=== PATIENT | female | born 1980 | race Caucasian/White ===

== ENCOUNTER 2023-08-15 10:44 | Emergency (ER) | payer MEDICAID, SELFPAY ==
[2023-08-15 10:56] VITALS: BP 132/99; PULSE 84; RESP 20; TEMP 36.9; O2SAT 94; BMI 42.9
--- NOTE | 2023-08-15 10:59 | PC.NURSE ---
SOB with exertion. Denies SOB at rest.
--- NOTE | 2023-08-15 13:21 | ED_ITS ---
HPI - General Adult General Chief complaint: Upper Respiratory Infection Stated complaint: SHORTNESS OF BREATH Time Seen by Provider: 08/15/23 11:59 Source: patient Mode of arrival: walk-in Limitations: no limitations History of Present Illness HPI narrative: Patient's lungs are clear, no wheezing, no rhonchi, no congestion. Patient was sent here from urgent care because she was COVID +.Patient was told that we w ould be able to help her with a work note, and breathing issues if needed. Patient says she does not feel that bad. Patient started with symptoms yesterday of cold, cough, congestion. Patient does not feel she needs a breathing treatment. Patient has a inhaler sitting next to her at bedside that was just refilled. Education on treating her symptoms [id number] were discussed at bedside and on discharge paperwork. Patient was given a work note per CDC recommendations. Patient has no nausea, vomiting, diarrhea, and acute complaints. Patient works at [employer]. Patient's house at bedside. Patient says that she was sick a week ago, she is placed on antibiotics at that time. Patient has finished antibiotics, patient says that she felt more sick last week and she does today. Patient is due to be a work today. . All systems are negative except as noted/marked. All systems reviewed and otherwise negative. . Nurses note and vital signs reviewed and patient is not hypoxic. General: The patient appears well and in no apparent distress. Patient is resting comfortably on cart. Patient is not toxic, lethargic, or listless Skin: Warm, dry, no pallor noted. There is no rash noted. No petechiae, purpura. Head: Normocephalic, atraumatic; No tenderness to palpation to bilateral frontal or maxillary sinus Eye: Normal conjunctiva, no drainage, EOMI. PERRL Ears, Nose, Mouth, and Throat: oral mucosa is moist. Nares patent. Mouth without vesicles. Cardiovascular: Regular Rate and Rhythm, no murmur, gallop, rub Respiratory: Patient is in no distress, no accessory muscle use, lungs are clear to auscultation, no wheezing, rales or rhonchi Back: non-tender, no CVA tenderness bilaterally to percussion. No CT LS midline pain GI: soft, obese, no tenderness Musculoskeletal: Patient has full range of motion of all of the extremities, no motor, sensory, or focal neurological deficits Neurological: A&O x3, normal speech Psychiatric: Cooperative Related Data Previous Rx's Medication Instructions Recorded prednisone 50 mg tablet 50 mg PO DAILY 5 days #5 tabs 08/15/23 Allergies Allergy/AdvReac Type Severity Reaction Status Date / Time No Known Drug Allergies Allergy Verified 08/15/23 10:56 Exam Constitutional Vital Signs, click to edit/add: Last Vital Signs Temp 98.5 F 08/15/23 10:56 Pulse 84 08/15/23 10:56 Resp 20 08/15/23 10:56 BP 132/99 H 08/15/23 10:56 Pulse Ox 94 L 08/15/23 10:56 O2 Del Method Room Air 08/15/23 10:56 Course Vital Signs Vital signs: Vital Signs Temperature 98.5 F 08/15/23 10:56 Pulse Rate 84 08/15/23 10:56 Respiratory Rate 20 08/15/23 10:56 Blood Pressure 132/99 H 08/15/23 10:56 Pulse Oximetry 94 L 08/15/23 10:56 Oxygen Delivery Method Room Air 08/15/23 10:56 Temperature 98.5 F 08/15/23 10:56 Pulse Rate 84 08/15/23 10:56 Respiratory Rate 20 08/15/23 10:56 Blood Pressure 132/99 H 08/15/23 10:56 Pulse Oximetry 94 L 08/15/23 10:56 Oxygen Delivery Method Room Air 08/15/23 10:56 Medical Decision Making MDM Narrative Medical decision making narrative: EKG was reviewed, no acute changes. Patient was given a prescription for prednisone to have a home just in case she needs it. Patient and I agreed that she does not need prednisone prescription at this time. Patient may not needed. Patient says that her asthma does not feel bad, she does have a full inhaler sitting next to her. Patient was educated and treating her symptoms at home. Patient was given a work note per CDC recommendations. Patient has no other questions at discharge. Patient looks well. Patient works at [employer]. No indication for imaging or additional testing, patient agrees. ECG Data Attestation: I personally reviewed and interpreted this ECG as follows: (EKG interpretation. Normal sinus rhythm 85 beats a minute. Normal axis deviation. No acute ST elevation, no acute ectopy. QTC of 408) Discharge Plan Discharge Chief Complaint: Upper Respiratory Infection Clinical Impression: COVID, Upper respiratory infection, History of asthma Patient Disposition: Home, Self-Care Time of Disposition Decision: 13:16 Condition: Fair Prescriptions / Home Meds: New prednisone 50 mg tablet 50 mg PO DAILY 5 Days Qty: 5 0RF Instructions: Asthma (ED), Upper Respiratory Infection (ED), COVID-19 (Coronavirus Disease 2019) (ED), Social Distancing Guidelines for COVID-19 (ED) Additional Instructions: Start using DayQuil, NyQuil, Flonase daily for next 5-7 days Add Mucinex DM if needed. Take daily vitamin C, vitamin D3, and zinc Increase fluids. Alternate Tylenol and Motrin every 4 hours as needed for body aches, muscle pain, joint pain or chest wall pain Follow-up with her PCP is no significant improvement in the next 3-4 days Only use steroids if needed for significant shortness of breath or wheezing. Stand Alone Forms: Work/School Release, Portal Instructions Referrals: Physician,Non-Staff, MD [Primary Care Provider] - 1 week
--- NOTE | 2023-08-15 13:21 | ECG_ITS ---
[facility] Test Date: 2023-08-15 Pat Name: SIOMARA MEADOWS Department: Room: - Gender: Female Record Label Intern: : 1980 Requested By: 0919 Order Number: [id number] Reading MD: AWA MENDOZA Measurements Intervals Una Rate: 85 P: 64 NC: 156 QRS: 20 QRSD: 88 T: 30 QT: 366 QTc: 408 Interpretive Statements 1100 Sinus rhythm 6220 Possible left atrial enlargement 8102 Low QRS voltage in chest leads 9130 borderline ECG No previous ECG available for comparison Electronically Signed On 08-16-2023 7:03:47 EST by AWA MENDOZA
== END 2023-08-15 13:26 | disposition home or self-care (01) ==
PROVIDERS: Emergency Provider Emergency Medicine
DX: U07.1 COVID-19 (principal); J06.9 Acute upper respiratory infection, unspecified; J45.909 Unspecified asthma, uncomplicated
CPT/HCPCS: 93005; 99283

== ENCOUNTER 2023-08-17 16:37 | Emergency (ER) | payer MEDICAID, SELFPAY ==
[2023-08-17 16:56] VITALS: PULSE 91; RESP 20; TEMP 36.6; O2SAT 96; BMI 48.1
--- OUTSIDE RECORDS SUMMARY | 2023-08-17 17:54 | XMS_ITS | CCD ---
Author Name Unknown Address [address] [facility] [address] [place] [id number] Organization [facility] Care Team Providers Care Asset Protection Detective Name Role Phone DR MACHELLE SIDDIQUI Primary Care Unavailable NAILA PETERS Consulting Unavailable NAILA PETERS Attending Unavailable NAILA PETERS Admitting Unavailable Jacquelin Terrell Unavailable Karo Cazares Unavailable Allergies Allergy Classification Reported Allergen(s) Allergy Type Date of Onset Reaction(s) Facility (1 source) Ethinyl Estradiol / norgestimate Drug Allergy [facility] Repository (2 sources) Ethinyl Estradiol / norgestimate Drug Allergy shortness of breath [facility] Other Medications Current Medications Medication Drug Class(es) Dates Sig (Normalized) Sig (Original) [id number] 60 actuat albuterol 0.09 mg/actuat metered dose inhaler (2 sources) beta2-Adrenergic Agonist Start: 3 take 1-2 puff(s) by inhalation every four to six hours as needed Albuterol Sulfate HFA 108 (90 Base) MCG/ACT 1-2 puffs as needed Inhalation every 4-6 hours for 14 days Jul, Active azithromycin 250 mg oral tablet (2 sources) Macrolide Antimicrobial Start: 3 Azithromycin 250 MG as directed Orally Take 2 tablets day 1 take 1 tablet day 2-5. for 5 days Jul, Active 24 hr buPROPion hydrochloride 150 mg extended release oral tablet (2 sources) Aminoketone take 1 tablet by mouth every twenty-four hours Wellbutrin XL 150 MG 1 tablet in the morning Orally Once a day Active FLUoxetine 20 mg oral capsule (2 sources) Serotonin Reuptake Inhibitor FLUoxetine HCl 20 MG Oral for 90 Days Active methylPREDNISolone 4 mg oral tablet (4 sources) Corticosteroid Start: 3 methylPREDNISolone 4 MG as directed Orally daily dose take half with breakfast half with dinner for 6 29 Dec, 2023 Active oxybutynin chloride 5 mg oral tablet (2 sources) Cholinergic Muscarinic Antagonist take 1 tablet by mouth every twelve hours oxyBUTYnin Chloride 5 MG 1 tablet Orally Twice a day Active Completed/Discontinued Medications Medication Drug Class(es) Dates Sig (Normalized) Sig (Original) acetaminophen 325 mg / HYDROcodone bitartrate 5 mg oral tablet (2 sources) Opioid Agonist HYDROcodone-Acet ami nophen 5-325 MG Oral for 30 Days Not-Taking/PRN amoxicillin 875 mg / clavulanate 125 mg oral tablet (2 sources) Penicillin-class Antibacterial take 1 tablet by mouth twice daily as needed Amoxicillin-Pot Clavulanate 875-125 MG TAKE 1 TABLET BY MOUTH TWICE DAILY Oral for 10 Days Not-Taking/PRN dextromethorphan hydrobromide 1.5 mg/ml / pyrilamine maleate 1.5 mg/ml oral solution (2 sources) Uncompetitive S-febhyb-L-asparta te Receptor Antagonist, Sigma-1 Agonist Start: 12-29-2022 take 10 mL by mouth every eight hours as needed [place] DM 7.5-7.5 MG/5ML 10 mL Orally every 8 hours for 5 days December, Not-Taking/PRN nitrofurantoin, macrocrystals 25 mg / nitrofurantoin, monohydrate 75 mg oral capsule (2 sources) Nitrofuran Antibacterial Nitrofurantoin Monohyd Macro 100 MG Oral for 5 Days Not-Taking/PRN Problems Active Problems Problem Classification Problem Date Documented Da te Episodic/Chronic Chronic obstructive pulmonary disease and bronchiectasis (1 source) Bronchitis, not specified as acute or chronic Episodic Other upper respiratory infections (4 sources) Acute pharyngitis, unspecified; Translations: [ACUTE PHARYNGITIS UNSPECIFIED] Onset: 09-28-2022 Episodic Otitis media and related conditions (1 source) Otitis media, unspecified, bilateral; Translations: [OTITIS MEDIA UNSPECIFIED BILATERAL] Onset: 09-29-2022 Episodic Past or Other Problems Problem Classification Problem Date Documented Da te Episodic/Chronic Unclassified (1 source) Contact with and (suspected) exposure to covid-19 Z20.822 Unclassified (1 source) Acute cough R05.1 Results Test Name Value Interpretation Reference Range Facil ity COVID + FLU Quick Testingon 08-15-2023 SARS-CoV-2 (COVID-19) RNA OLESYA+probe Ql (Unsp spec) Positive [facility] Other COVID + FLU Quick Testing Negative [facility] Other COVID/FLU/RSV RT-PCRon 08-11 SARS-CoV-2 (COVID-19) RNA OLESYA+probe Ql (Unsp spec) Negative [facility] Other COVID/FLU/RSV RT-PCR Negative [facility] Other GROUP A STREP CULTUREon 09-14 S. pyogenes Ag Ql (Unsp spec) Isolate 1 Streptococcus pyogenes Light growth of ORGANISM 1 Streptococcus pyogenes ANTIBIOTIC M.I.C RX STATUS Benzylpenicillin <=0.06 S F Ampicillin <=0.25 S F Cefotaxime <=0.12 S F Ceftriaxone <=0.12 S F Levofloxacin 0.5 S F Inducible Clindamycin Resistance Neg NEG F Erythromycin <=0.12 S F Clindamycin <=0.25 S F Linezolid <=2 S F Vancomycin <=0.12 S F Tetracycline <=0.25 S F Normal [facility] Comment on above: Performed By: #### BEATRICETCX, SSCRN #### [facility] [address] [place] [address] Dr. Antonietta Farmer STREPT SCREENon 09-28-2022 STREP SCREEN A Negative Normal NEGATIVE [facility] Comment on above: Performed By: #### BEATRICETCX, SSCRN #### [facility] [address] [address] [address] Antonietta Farmer Vital Signs Date Time Vital Sign Value Performing Clinician Facility 08-15-2023 10:10-0500 Body height 163.83 cm Karo Cazares Other [facility] Other 08-15-2023 10:10-0500 Body mass index (BMI) [Ratio] 46.3 kg/m2 Karo Cazares Other [facility] Other 08-15-2023 10:10-0500 Body temperature 99.1 [degF] Karo Cazares Other [facility] Other 08-15-2023 10:10-0500 Body weight 124.29 kg Karo Cazares Other [facility] Other 08-15-2023 10:10-0500 Respiratory rate 18 /min Karo Cazares Other [facility] Other 08-15-2023 10:10-0500 SaO2% (BldA) [Mass fraction] 88 % Karo Cazares Other [facility] Other 08-11-2023 09:55-0500 Body height 163.83 cm Jacquelin Terrell Other [facility] Other 08-11-2023 09:55-0500 Body mass index (BMI) [Ratio] 45.46 kg/m2 Jacquelin Terrell Other [facility] Other 08-11-2023 09:55-0500 Body temperature 97.3 [degF] Jacquelin Terrell Other [facility] Other 08-11-2023 09:55-0500 Body weight 122.02 kg Jacquelin Terrell Other [facility] Other 08-11-2023 09:55-0500 Respiratory rate 18 /min Jacquelin Terrell Other [facility] Other 08-11-2023 09:55-0500 SaO2% (BldA) [Mass fraction] 97 % Jacquelin Terrell Other [facility] Other Encounters Encounter Date Encounter Type Care Provider Facility Start: 08-15-2023 End: 08-15-2023 ambulatory Karo Cazares Other [facility] Other Start: 08-15-2023 Patient encounter procedure Karo Cazares [facility] Start: 08-11-2023 End: 08-11-2023 ambulatory Jacquelin Terrell Other [facility] Other Start: 08-11-2023 Office outpatient vi sit 15 minutes Jacquelin Terrell [facility] Start: 09-28-2022 End: 09-29-[address] DOCTOR SIDDIQUI Facility:[facility] Payers Date Payer Category Payer Unknown [id number] 1960 Self-pay Medicaid [id number] 2. [id number] Social History Date Type Detail Facility Unknown if ever smoked [facility] Other Sex Assigned At Sex Assigned At Bir th [facility] Other Evaluation note 08-15-2023 Note Date & Type Note Facility 08-15-2023 Evaluation note Encounter Date Diagnosis Assessment Notes Aug, Acute cough (ICD-10 - R05.1) [facility] Other Evaluation note 08-11-2023 Note Date & Type Note Facility 08-11-2023 Evaluation note Encounter Date Diagnosis Assessment Notes Jul, Contact with and (suspected) exposure to covid-19 (ICD-10 - Z20.822) Jul, Bronchitis (ICD-10 - J40) Advised that COVID, RSV and Flu negative. Patient to take meds as directed with food. Discussed SE of steroid, avoid additional NSAIDs while taking steroid, Tylenol OK. OTC cough/cold meds as directed on packaging. Tylenol/Motrin as needed for aches/fever. Supportive care as directed, push fluids/rest, cool mist humidification. Follow up with PCP if symptoms persist or change, immediate eval for warning s/sx as discussed including difficulty breating, chest pain, palpitations, fevers unresponsive to antipyretic, unable to keep fluid or food down. Acute bronchitis home care material was printed. Patient verbalizes understanding and is agreeable to treatment plan. [facility] Other History general Narrative - Reported Note Date & Type Note Facility History general Narrative - Reported Type Medical History lupus Medical History fibromyalgia Surgical History tubal ligation [facility] Other Summary Purpose Family History No Family History Records Found Advance Directives No Advanced Directives Records Found Additional Source Comments INFORMATION SOURCE (unrecogn ized section and content) DATE CREATED AUTHOR 10/01/2022 [facility] REASON FOR VISIT (unrecogniz ed section and content) headache, chest congestion, fatiguedSORE THROAT, ADDED TO BEING HERE LAST WEEK FOR RECORDS PERTAINING TO PATIENTS WHO ARE OR HAVE BEEN ENROLLED IN A CHEMICAL DEPENDENCY/SUBSTANCEABUSE PROGRAM, SOME INFORMATION MAY BE OMITTED. This clinical summary was aggregated from multiple sources. Caution should be exercised in using it in the provision of clinical care. This summary normalizes information from multiple sources, and as a consequence, information in this document may materially change the coding, format and clinical context of patient data. In addition, data may be omitted in some cases. CLINICAL DECISIONS SHOULD BE BASED ON THE PRIMARY CLINICAL RECORDS. [employer] provides no warranty or guarantee of the accuracy or completeness of information in this document.
--- NOTE | 2023-08-17 18:00 | ED.GENADUL1 ---
HPI - General Adult General Chief complaint: Upper Respiratory Infection Stated complaint: COVID POS-BODY HEADACHES Time Seen by Provider: 08/17/23 17:06 Source: patient Mode of arrival: walk-in Limitations: no limitations History of Present Illness HPI narrative: 43-year-old female presents for generalized body aches. She has been sick for a week and was diagnosed with Covid. No vomiting or diarrhea or known fever. Symptoms are continuous. Related Data Previous Rx's Medication Instructions Recorded prednisone 50 mg tablet 50 mg PO DAILY 5 days #5 tabs 08/15/23 acetaminophen 300 mg-codeine 30 mg 1 tab PO Q6H PRN pain 5 days #20 08/17/23 tablet tabs Allergies Allergy/AdvReac Type Severity Reaction Status Date / Time No Known Drug Allergies Allergy Verified 08/17/23 16:55 Review of Systems ROS Narrative A ten point review of systems is negative except as noted above. Constitutional Reports: malaise Respiratory Reports: cough Exam Narrative Exam Narrative: Nurses note and vital signs reviewed and patient is not hypoxic. General: The patient appears well and in no apparent distress. Patient is resting comfortably on cart. Skin: Warm, dry, no pallor noted. There is no rash noted. Head: Normocephalic, atraumatic Eye: Normal conjunctiva, no drainage Ears, Nose, Mouth, and Throat: oral mucosa is moist. Nares patent. Cardiovascular: Regular Rate and Rhythm Respiratory: Patient is in no distress, no accessory muscle use, lungs are clear to auscultation, no wheezing, rales or rhonchi Back: non-tender GI: soft and nontender Musculoskeletal: The patient has no evidence of calf tenderness, no pitting edema, symmetrical pulses noted bilaterally Neurological: A&O, normal speech Psychiatric: Cooperative Constitutional Vital Signs, click to edit/add: Last Vital Signs Temp 98 F 08/17/23 16:56 Pulse 91 H 08/17/23 16:56 Resp 20 08/17/23 16:56 Pulse Ox 96 08/17/23 16:56 O2 Del Method Room Air 08/17/23 16:56 Course Vital Signs Vital signs: Vital Signs Temperature 98 F 08/17/23 16:56 Pulse Rate 91 H 08/17/23 16:56 Respiratory Rate 20 08/17/23 16:56 Pulse Oximetry 96 08/17/23 16:56 Oxygen Delivery Method Room Air 08/17/23 16:56 Temperature 98 F 08/17/23 16:56 Pulse Rate 91 H 08/17/23 16:56 Respiratory Rate 20 08/17/23 16:56 Pulse Oximetry 96 08/17/23 16:56 Oxygen Delivery Method Room Air 08/17/23 16:56 Medical Decision Making MDM Narrative Medical decision making narrative: the patient will be treated symptomatically with Tylenol 3. Treatment diagnosis and follow-up were discussed with the patient. Differential Diagnosis Differential Diagnosis: Covid, myalgia Discharge Plan Discharge Chief Complaint: Upper Respiratory Infection Clinical Impression: COVID, Myalgia Patient Disposition: Home, Self-Care Time of Disposition Decision: 17:58 Condition: Good Mode of Transportation: Private Vehicle Prescriptions / Home Meds: New acetaminophen-codeine 300-30 mg tablet 1 tab PO Q6H PRN (Reason: pain) 5 Days Qty: 20 0RF No Action prednisone 50 mg tablet 50 mg PO DAILY 5 Days Qty: 5 0RF Instructions: Droplet Precautions (ED), COVID-19 (Coronavirus Disease 2019) (ED), COVID-19: Slow the Coronavirus Spread (ED), Face Coverings (Masks) and COVID-19 (ED), How to Recover from COVID-19 at Home (ED) Stand Alone Forms: Portal Instructions Referrals: Physician,Non-Staff, MD [Primary Care Provider] - 1 week
== END 2023-08-17 18:26 | disposition home or self-care (01) ==
PROVIDERS: Emergency Provider Emergency Medicine
DX: M79.10 Myalgia, unspecified site (principal); U07.1 COVID-19
CPT/HCPCS: 99283

== ENCOUNTER 2024-07-28 19:50 | Emergency (ER) | payer MEDICAID, SELFPAY ==
--- OUTSIDE RECORDS SUMMARY | 2024-07-28 19:56 | XMS_ITS | CCD ---
Author Organization [facility] Care Team Providers Care Family Advocate Name Role Phone DR MACHELLE SIDDIQUI Primary Care Unavailable NAILA PETERS Consulting Unavailable NAILA PETERS Attending Unavailable NAILA PETERS Admitting Unavailable Jacquelin Terrell Unavailable Karo Cazares Unavailable Karo Cazares Attending Unavailable Karo Cazares Admitting Unavailable Allergies Allergy Classification Reported Allergen(s) Allergy Type Date of Onset Reaction(s) Facility (1 source) Ethinyl Estradiol / norgestimate Drug Allergy [facility] Repository (2 sources) Ethinyl Estradiol / norgestimate Drug Allergy shortness of breath [facility] [employer] Other (2 sources) Codeine; Translations: [codeine] Drug Allergy 4 [facility] (2 sources) Ethinyl Estradiol; Translations: [ethinyl estradiol] Drug Allergy 4 shortness of breath [facility] (2 sources) norgestimate; Translations: [norgestimate] Drug Allergy 4 shortness of breath [facility] Medications Current Medications Medication Drug Class(es) Dates Sig (Normalized) Sig (Original) [id number] 60 actuat albuterol 0.09 mg/actuat metered dose inhaler (2 sources) beta2-Adrenergic Agonist Start: 08-11-2023 take 1-2 puff(s) by inhalation every four to six hours as needed Albuterol Sulfate HFA 108 (90 Base) MCG/ACT 1-2 puffs as needed Inhalation every 4-6 hours for 14 days Jul, Active azithromycin 250 mg oral tablet (2 sources) Macrolide Antimicrobial Start: 08-11-2023 Azithromycin 250 MG as directed Orally Take 2 tablets day 1 take 1 tablet day 2-5. for 5 days Jul, Active 24 hr buPROPion hydrochloride 150 mg extended release oral tablet (2 sources) Aminoketone take 1 tablet by mouth every twenty-four hours Wellbutrin XL 150 MG 1 tablet in the morning Orally Once a day Active FLUoxetine 20 mg oral capsule (3 sources) Serotonin Reuptake Inhibitor Start: 02-08-2024 take 20 mg by mouth once daily Fluoxetine Active 20 MG PO Daily February 08, 2024 12:00am FLUoxetine HCl 2 0 MG Oral for 90 Days Active metFORMIN hydrochloride 500 mg oral tablet (1 source) Biguanide Start: 02-08-2024 take 500 mg by mouth twice daily at mealtime Metformin Active 500 MG PO Twice daily with meals February 08, 2024 12:00am methocarbamol 750 mg oral tablet (1 source) Muscle Relaxant Start: 02-08-2024 take 750 mg by mouth once daily at bedtime Methocarbamol Active 750 MG PO Daily at bedtime February 08, 2024 12:00am methylPREDNISolone 4 mg oral tablet (4 sources) Corticosteroid Start: 12-29-2022 methylPREDNISolone 4 MG as directed Orally daily dose take half with breakfast half with dinner for 6 Jul, Active oxybutynin chloride 5 mg oral tablet [...] 1.5 mg/ml oral solution (2 sources) Uncompetitive A-eyqwpn-R-asparta te Receptor Antagonist, Sigma-1 Agonist Start: 12-29-2022 take 10 mL by mouth every eight hours as needed Kanosh DM 7.5-7.5 MG/5ML 10 mL Orally every [...] not specified as acute or chronic Episodic Genitourinary symptoms and ill-defined conditions (1 source) Dysuria; Translations: [Dysuria] Onset: 02-08-2024 Episodic Other upper respiratory infections (4 sources) [...] Name Value Interpretation Reference Range Facil ity Urine Cultureon 02-08-2024 Bacteria identified Cx Nom (U) ORGANISM: Escherichia coli (O:ESCCOL) Hortense Count >100,000 Aerobic WENDY Charge ([id number]) ----- SUSCEPTIBILITY ---- ORGANISM: O:ESCCOL ANTIBIOTIC INTERPRETATION WENDY Amikacin S <16 Amoxacillin/K Clavulanate S <8 Ampicillin S <8 Ampicillin/Sulbactam S <4 Aztreonam S <4 Cefazolin S <2 Cefepime S <2 Ceftazidime S <1 Ceftazidime/Avibacta m S <4 Ceftolozane/Tazobact am S <2 Ceftriaxone S <1 Cefuroxime S <4 Ciprofloxacin S <0.25 Ertapenem S <0.5 Gentamicin S <2 Levofloxacin S <0.5 Meropenem S <1 Meropenem/Vaborbacta m S <2 Nitrofurantoin S <32 Piperacillin/Tazobac fofana S <8 Tetracycline S <4 Tigecycline S <2 Tobramycin S <2 Trimethoprim/Sulfame thoxazole S <0.5 S = SUSCEPTIBLE I = INTERMEDIATE R = RESISTANT BLANK = DATA NOT AVAILABLE, OR DRUG NOT ADVISABLE OR TESTED R* = RESISTANCE DUE TO EXTENDED SPECTRUM BETA-LACTAMASES ESBL = EXTENDED SPECTRUM BETA-LACTAMASE TFG = THYMIDINE-DEPENDENT STRAIN GARRET = BETA-LACTAMASE POSITIVE IB = INDUCIBLE BETA-LACTAMASE. APPEARS IN PLACE OF 'S' WITH SPECIES KNOWN TO POSSESS INDUCIBLE BETA-LACTAMASES. POTENTIALLY THEY MAY BECOME RESISTANT TO ALL B-LACTAM DRUGS. PERFORMED BY: [facility] [address] [place] [address] PATHOLOGIST CUTTING AND SPLICING SUPERVISOR YESICA HOGAN M.D. Normal [facility] Comment on above: Performed By: #### C UU #### [facility] [address] COVID + FLU Quick Testingon 08-15-2023 SARS-CoV-2 (COVID-19) RNA OLESYA+probe Ql (Unsp spec) Positive [employer] [facility] [employer] Other COVID + FLU Quick Testing Negative [employer] [facility] [employer] Other COVID/FLU/RSV RT-PCRon 08-11 SARS-CoV-2 (COVID-19) RNA OLESYA+probe Ql (Unsp spec) Negative [employer] [facility] [employer] Other COVID/FLU/RSV RT-PCR Negative [employer] [facility] [employer] Other GROUP A STREP CULTUREon 09-14 S. [...] F Tetracycline <=0.25 S F Normal [facility] Comment on above: Performed By: #### G RASTCX, SSCRN #### [facility] [address] [address] [address] Antonietta Farmer STREPT SCREENon 09-28-2022 STREP SCREEN A Negative Normal NEGATIVE [facility] Comment on above: Performed By: #### G RASTCX, SSCRN #### [facility] [id number] Antonietta Farmer Vital Signs Date Time Vital Sign Value Performing Clinician Facility 02-08-2024 14:43-0400 Body height 163.83 cm [facility] 02-08-2024 14:43-0400 Body mass index (BMI) [Ratio] 47.1 kg/m2 [facility] 02-08-2024 14:43-0400 Body temperature 98 [degF] [facility] 02-08-2024 14:43-0400 Body weight 126.6 kg [facility] 02-08-2024 14:43-0400 Heart rate 77 /min [facility] 02-08-2024 14:43-0400 Respiratory rate 16 /min [facility] 02-08-2024 14:43-0400 SaO2% (BldA) [Mass fraction] 92 % [facility] 08-15-2023 10:10-0500 Body height 163.83 cm Karo Cazares Other [employer] [facility] [employer] Other 08-15-2023 10:10-0500 Body mass index (BMI) [Ratio] 46.3 kg/m2 Karo Cazares Other [facility] Other 08-15-2023 10:10-0500 Body temperature 99.1 [degF] Karo Cazares Other [facility] Other 08-15-2023 10:10-0500 Body weight 124.29 kg Karo Cazares Other [facility] Other 08-15-2023 10:10-0500 Respiratory rate 18 /min Karo Cazares Other [facility] Other 08-15-2023 10:10-0500 SaO2% (BldA) [Mass fraction] 88 % Karo Cazares Other [facility] Other 08-11-2023 09:55-0500 Body height 163.83 cm Jacquelin Terrell Other [facility] Other 08-11-2023 09:55-0500 Body mass index (BMI) [Ratio] 45.46 kg/m2 Jacquelin Terrell Other [facility] Other 08-11-2023 09:55-0500 Body temperature 97.3 [degF] Jacquelin Terrell Other [facility] Other 08-11-2023 09:55-0500 Body weight 122.02 kg Jacquelin Terrell Other [facility] Other 08-11-2023 09:55-0500 Respiratory rate 18 /min Jacquelin Terrell Other [facility] Other 08-11-2023 09:55-0500 SaO2% (BldA) [Mass fraction] 97 % Jacquelin Terrell Other [facility] Other Encounters Encounter Date Encounter Type Care Provider Facility Start: 02-08-2024 End: 02-08-2024 ambulatory Karo Cazares [facility] Work Phone: Start: 02-08-2024 End: 02-08-2024 Patient encounter procedure [facility] Work Phone: Start: 08-15-2023 End: 08-15-2023 ambulatory Karo Cazares Other [facility] Other Start: 08-15-2023 Patient encounter procedure Karo Cazares [facility] Start: 08-11-2023 End: 08-11-2023 ambulatory Jacquelin Terrell Other [facility] Other Start: 08-11-2023 Office outpatient vi sit 15 minutes Jacquelin Terrell [facility] Start: 09-28-2022 End: 09-29-[address] DOCTOR SIDDIQUI Facility: Plan of Treatment Date Care Activity Detail Author Bacteria identified in Urine by Culture [facility] Payers Date Payer Category Payer Medicaid [id number] 2. [id number] 1980 Unknown [id number] 1960 Self-pay Unknown [id number] Social History Date Type Detail Facility Unknown if ever smoked [facility] Other Sex Assigned At Sex Assigned At Bir th [facility] Other Start: 02-08-2024 Tobacco smoking status NHIS Never smoked tobacco (finding) [facility] Start: 1980 Sex Assigned At Female F [facility] Evaluation note 08-15-2023 Note Date & Type Note Facility 08-15-2023 Evaluation note Encounter Date Diagnosis Assessment Notes Aug, Acute cough (ICD-10 - R05.1) [facility] Other Evaluation note 08-11-2023 Note Date & [...] understanding and is agreeable to treatment plan. [facility] Other Evaluation note Note Date & Type Note Facility Evaluation note No assessment information availa [facility] Work Phone: History general Narrative - Reported Note Date & Type Note Facility History general Narrative - Reported Type Medical History lupus Medical History fibromyalgia Surgical History tubal ligation [facility] [employer] Other Summary Purpose Family History No Family History Records Found Relationship Condition Age at Onset Recorded Date/T hector father Parkinson's disease Unknown Unknown mother Hypertension Unknown Advance Directives No Advanced Directives Records Found Advance Directive Response Recorded Date/ Time Advance Directives No February 07 2:30pm Chief Complaint and Reason for Visit Chief Complaint Possible UTI Additional Source Comments INFORMATION SOURCE (unrecogn ized section and content) DATE CREATED AUTHOR 10/01/2022 [facility] DATE CREATED AUTHOR AUTHOR'S ORGANIZ ATION 02/12/2024 [facility] REASON FOR VISIT (unrecogniz ed section and content) headache, chest congestion, fatiguedSORE THROAT, ADDED TO BEING HERE LAST WEEK Care Teams (unrecognized sec tion and content) Team Status: Active Member Role Status Dates PHYSICIAN NO FAMILY Primary Care Provider Active Team Status: Inactive Member Role Status Dates PHYSICIAN NO FAMILY Primary Care Provider Active Start: February 08, 2024 End: February 08, 2024 Karo Cazares APRN Attending Provider Active Start: February 08, 2024 End: February 08, 2024 Goals (unrecognized section and content) Goals may be documented in a n alternate section FOR RECORDS PERTAINING TO PATIENTS WHO ARE [...] BE BASED ON THE PRIMARY CLINICAL RECORDS. [facility] [employer] [facility]. provides no warranty or guarantee of the accuracy or completeness of information in this document.
[2024-07-28 20:05] VITALS: BP 127/83; TEMP 36.9; O2SAT 97; BMI 45.5
--- NOTE | 2024-07-28 20:13 | PC.NURSE ---
complains of UTI with lower back pain and increased urination, this patient voices Last January i had a uti and has this lower back pain and increased. this patient voices no other complaints and shows no signs of distress a urine sample collected and sent to lab dept
--- NOTE | 2024-07-28 20:15 | ED_ITS ---
HPI HPI - General Adult General Chief complaint: Urogenital-Female Stated complaint: uti Time Seen by Provider: 07/28/24 19:51 Source: patient Mode of arrival: walk-in Limitations: no limitations History of Present Illness HPI narrative: Patient is a 44-year-old female presents to the ER with concerns of urinary tract infection patient states her last UTI was in January. She cannot recall the antibiotic she was placed on but notes symptoms resolved. She denies any abdominal pain or vaginal discharge she has mild aching in her lower back she is without nausea or vomiting or fever. Patient notes urinary urgency and frequency some slight burning on end of stream. She appears nontoxic in no acute distress. She denies any abdominal pain. Trying to get early for treatment. Onset (ago): day(s) (2) Radiation: Reports back Quality: Reports burning Pain Consistency: Reports constant Relieving factors: Reports none Exacerbating factors: Reports none Treatments prior to arrival: Reports none Related Data Previous Rx's ?Medication ?Instructions ?Recorded cephalexin 500 mg capsule 500 mg PO BID 5 days #10 caps 07/28/24 phenazopyridine 200 mg tablet 200 mg PO TID PRN pain 6 doses #9 07/28/24 (Pyridium) tabs Allergies Allergy/AdvReac Type Severity Reaction Status Date / Time codeine Allergy Mild vomiting Verified 07/28/24 20:05 Opioid HPI Opioid Management Most Recent Opioid Data: Last Pain Scale 8 08/17/23 18:13 08/17/23 Review of Systems ROS Constitutional Denies: fever, chills or change in weight Eyes Denies: change in vision or blurry vision Ears, nose, mouth, and throat Denies: throat pain, neck pain or ear discharge Cardiovascular Denies: chest pain Respiratory Denies: shortness of breath or cough Gastrointestinal Denies: abdominal pain, nausea or vomiting Genitourinary Reports: painful urination, urinary frequency and urinary urgency; Denies: urinary incontinence, vaginal bleeding, vaginal discharge or genital itching Musculoskeletal Reports: back pain; Denies: neck pain Integumentary/Breast Denies: rash, itching or redness Neurological Denies: headache Psychiatric Denies: anxiety PFSH PFSH Social History Little interest or pleasure in doing things: not at all Feeling down, depressed, or hopeless: not at all Exam Narrative Exam Narrative: Nurses notes and vital signs reviewed and patient is not hypoxic. General: The patient appears well and in no apparent distress. Patient is resting comfortably on cart. Skin: Warm, dry, no pallor noted. Head: Normocephalic, atraumatic Neck: Supple, trachea mid-line, no tenderness, no lymphadenopathy Eye: Pupils are equal, round and reactive to light, EOMI Ears, Nose, Mouth, and Throat: TM are clear, normal light reflex, oral mucosa is moist, no posterior oropharynx erythema or hypertrophy, uvula is mid-line Cardiovascular: Regular Rate and Rhythm Respiratory: Patient is in no distress, no accessory muscle use, lungs are clear to auscultation, no wheezing, rales or rhonchi. Chest Wall: no tenderness Back: non-tender, no CVA tenderness Musculoskeletal: normal ROM, no tenderness, no swelling GI: Normal bowel sounds, no tenderness to palpation, no masses appreciated. No rebound, guarding, or rigidity noted. Neurological: A&O x4 Psychiatric: Cooperative Constitutional Vital Signs, click to edit/add: Last Vital Signs Temp 98.5 F 07/28/24 20:05 Resp 18 07/28/24 20:05 BP 127/83 07/28/24 20:05 Pulse Ox 97 07/28/24 20:05 O2 Del Method Room Air 07/28/24 20:05 Course Vital Signs Vital signs: Vital Signs Temperature 98.5 F 07/28/24 20:05 Respiratory Rate 18 07/28/24 20:05 Blood Pressure 127/83 07/28/24 20:05 Pulse Oximetry 97 07/28/24 20:05 Oxygen Delivery Method Room Air 07/28/24 20:05 Temperature 98.5 F 07/28/24 20:05 Respiratory Rate 18 07/28/24 20:05 Blood Pressure 127/83 07/28/24 20:05 Pulse Oximetry 97 07/28/24 20:05 Oxygen Delivery Method Room Air 07/28/24 20:05 Medical Decision Making MDM Narrative Medical decision making narrative: Stable vitals, no CVA tenderness, no significant abdominal pain and lower back pain is subjective. Discussed clinical history concerning for urinary tract infection given prior experience, we do not have a urine culture at our facility patient states she was treated at urgent care. Patient be placed on Keflex and Pyridium urine culture will be pending recommend follow-up to PCP for reevaluation return to the ER symptoms worsen or new symptoms develop. The patient is to followup with primary care physician in next 2-3 days or to return to the emergency department should any of the signs or symptoms worsen or new symptoms develop. Patient had questions answered. The patient agrees with the following Diagnosis and Treatment plan and the patient will be discharged home. Lab Data Lab results reviewed: Yes I reviewed the patient's lab results Labs: Lab Results 07/28/24 Range/Units 20:02 Urine Color Yellow (YELLOW) Urine Clarity Clear (CLEAR) Urine pH 6.0 (5.0-9.0) Ur Specific [place] 1.020 (1.005-1.025) Urine Protein Negative (NEG/TRACE) mg/dL Urine Glucose (UA) Negative (NEGATIVE) mg/dL Urine Ketones Negative (NEGATIVE) mg/dL Urine Occult Blood Trace-i (NEGATIVE) Urine Nitrite Negative (NEGATIVE) Urine Bilirubin Negative (NEGATIVE) Urine Urobilinogen 1.0 (0.2-1.0) EU/dL Ur Leukocyte Esterase Large A (NEGATIVE) Urine RBC 0-2 (0-2) #/HPF Urine WBC 10-20 A (NONE SEEN) #/HPF Ur Squamous Epith Cells Few A (NONE/RARE) #/LPF Urine Crystals None seen (None Seen) #/HPF Urine Bacteria Moderate A (NONE SEEN) #/HPF Urine Casts None seen (NONE SEEN) #/LPF Urine Mucus None seen (NONE SEEN) Ur Culture Indicated? Yes Urine HCG, Qual Negative (NEGATIVE) Discharge Plan Discharge Chief Complaint: Urogenital-Female Clinical Impression: Urinary tract infection, Dysuria Patient Disposition: Home, Self-Care Time of Disposition Decision: 20:19 Condition: Good Prescriptions / Home Meds: New phenazopyridine [Pyridium] 200 mg tablet 200 mg PO TID PRN (Reason: pain) Qty: 9 0RF cephalexin 500 mg capsule 500 mg PO BID 5 Days Qty: 10 0RF Print Language: Serbian Instructions: Urinary Tract Infection in Women (ED) Additional Instructions: Recommend follow up with you PCP in 2-4 days, Culture pending. Referrals: Opal Bang NP [Physician] - 1 week
[2024-07-28 20:16] LABS: Bilirubin Urine NEGATIVE (NEGATIVE); Blood Urine TRACE-I (NEGATIVE); Clarity Urine CLEAR (CLEAR); Color Urine YELLOW (YELLOW); Glucose Urine UA NEGATIVE (NEGATIVE); Ketones Urine NEGATIVE (NEGATIVE); Leukocyte Esterase Urine LARGE (NEGATIVE); Nitrite Urine NEGATIVE (NEGATIVE); Protein Urine NEGATIVE (NEG/TRACE)
[2024-07-28 20:19] LABS: Urine Microscopic Indicated YES
[2024-07-28 20:21] LABS: HCG Qualitative Urine* NEGATIVE (NEGATIVE); Internal Control Within Normal Limits
[2024-07-28 20:23] LABS: Bacteria Urine MODERATE #/HPF (NONE SEEN); Cast Seen? NONE SEEN #/LPF (NONE SEEN); Crystals Seen? None Seen #/HPF (None Seen); Mucus Urine NONE SEEN (NONE SEEN); RBC Urine 0-2 #/HPF (0-2); Squamous Epithelial Cell Urine FEW #/LPF (NONE/RARE); Urine Culture Indicated YES
[2024-07-28] MEDS: CEPHALEXIN 500 MG CAPSULE PO (20:41)
[2024-07-28] MEDS: PHENAZOPYRIDINE 100 MG TABLET 200 MG PO (20:42)
--- NOTE | 2024-07-28 20:45 | PC.NURSE ---
i gave this patient verbal and paper discharge orders along with 2 E-script and this patient voices yes to understanding this. at time of discharge this patient vices no concerns and shows no signs of distress
== END 2024-07-28 20:46 | disposition home or self-care (01) ==
PROVIDERS: Personal Emergency Response Attendant; Emergency Provider Emergency Medicine
DX: N39.0 Urinary tract infection, site not specified (principal); R30.0 Dysuria; Z87.440 Personal history of urinary (tract) infections
CPT/HCPCS: 81001; 84703; 87086; 87150; 87186; 99283

== ENCOUNTER 2024-10-09 11:17 | Emergency (ER) | payer MEDICAID, SELFPAY ==
[2024-10-09 11:23] VITALS: BP 160/90; PULSE 102; TEMP 36.8; O2SAT 96; BMI 42.9
--- OUTSIDE RECORDS SUMMARY | 2024-10-09 11:40 | XMS_ITS | CCD ---
Author Organization [facility] CliniSyny Care Team Providers Care Slat Pickler Name Role Phone DR MACHELLE SIDDIQUI Primary Care Unavailable NAILA PETERS Consulting Unavailable NAILA PETERS Attending Unavailable NAILA PETERS Admitting Unavailable Jacquelin Terrell Unavailable Karo Cazares Unavailable Karo Cazares Attending Unavailable Karo Cazares Admitting Unavailable Allergies Allergy Classification Reported Allergen(s) Allergy Type Date of Onset Reaction(s) Facility (1 source) Ethinyl Estradiol / norgestimate Drug Allergy [facility] Repository (2 sources) Ethinyl Estradiol / norgestimate Drug Allergy shortness of breath [facility] Compound Time Other (3 sources) Codeine; Translations: [codeine] Drug Allergy 4 Vomiting [facility] (3 sources) Ethinyl Estradiol; Translations: [ethinyl estradiol] Drug Allergy 4 shortness of breath [facility] (3 sources) norgestimate; Translations: [norgestimate] Drug Allergy 4 shortness of breath [facility] Medications Current Medications Medication Drug Class(es) Dates Sig (Normalized) Sig (Original) [id number] 60 actuat albuterol 0.09 mg/actuat metered dose [...] the morning Orally Once a day Active ciprofloxacin 500 mg oral tablet (1 source) Quinolone Antimicrobial Start: 02-10-2024 take 1 tablet by mouth every twelve hours Ciprofloxacin Hcl (Cipro) 500 mg tablet Active 500 MG PO Every 12 hours 14 7 February 09, 2024 11:00pm FLUoxetine 20 mg oral capsule (4 sources) Serotonin Reuptake Inhibitor Start: 02-08-2024 take 1 capsule by mouth once daily Fluoxetine 20 mg capsule Active 20 MG PO Daily February 07, 2024 11:00pm FLUoxetine HCl 2 0 MG Oral for 90 Days Active metFORMIN hydrochloride 500 mg oral tablet (2 sources) Biguanide Start: 02-08-2024 take 1 tablet by mouth twice daily at mealtime Metformin 500 mg tablet Active 500 MG PO Twice daily with meals February 07, 2024 11:00pm methocarbamol 750 mg oral tablet (2 sources) Muscle Relaxant Start: 02-08-2024 take 1 tablet by mouth once daily at bedtime Methocarbamol 750 mg tablet Active 750 MG PO Daily at bedtime February 07, 2024 11:00pm methylPREDNISolone 4 mg oral tablet (4 sources) [...] 1.5 mg/ml oral solution (2 sources) Uncompetitive O-kpkwdi-J-asparta te Receptor Antagonist, Sigma-1 Agonist Start: 12-29-2022 take 10 mL by mouth every eight hours as needed [place] DM 7.5-7.5 MG/5ML 10 mL Orally every [...] Cx Nom (U) ORGANISM: Escherichia coli (O:ESCCOL) [place] Count >100,000 Aerobic WENDY Charge (NMIC56) ----- [...] RESISTANT TO ALL B-LACTAM DRUGS. PERFORMED BY: [place] [address] PATHOLOGIST PAYLOADER OPERATOR YESICA HOGAN M.D. Normal [facility] Comment on above: Performed By: #### C UU #### [address] COVID + FLU Quick Testingon 08-15-2023 SARS-CoV-2 (COVID-19) RNA OLESYA+probe Ql (Unsp spec) Positive [facility] Compound Time Other COVID + FLU Quick Testing Negative [facility] Other COVID/FLU/RSV RT-PCRon 08-11 SARS-CoV-2 (COVID-19) RNA OLESYA+probe Ql (Unsp spec) Negative [facility] Other COVID/FLU/RSV RT-PCR Negative [facility] Other GROUP A STREP CULTUREon 09-14 S. [...] <=0.25 S F Normal [facility] Comment on above: Performed By: #### G RASTCX, SSCRN #### [facility] Laboratory [address] [address] [address] Antonietta Farmer STREPT SCREENon 09-28-2022 STREP SCREEN A Negative Normal NEGATIVE [facility] Comment on above: Performed By: #### G RASTCX, SSCRN #### [facility] [address] [address] [address] Antonietta Farmer Vital Signs Date Time Vital Sign Value Performing Clinician Facility 10-02-2024 16:59-0500 Body height 163.83 cm [facility] 10-02-2024 16:59-0500 Body mass index (BMI) [Ratio] 27.5 kg/m2 [facility] 10-02-2024 16:59-0500 Body temperature 98.1 [degF] [facility] 10-02-2024 16:59-0500 Body weight 73.93 kg [facility] 10-02-2024 16:59-0500 Diastolic blood pressure 83 mm[Hg] [facility] 10-02-2024 16:59-0500 Heart rate 74 /min [facility] 10-02-2024 16:59-0500 Respiratory rate 18 /min [facility] 10-02-2024 16:59-0500 SaO2% (BldA) [Mass fraction] 95 % [facility] 10-02-2024 16:59-0500 Systolic blood pressure 134 mm[Hg] [facility] 02-08-2024 14:43-0400 Body height 163.83 cm [facility] 02-08-2024 14:43-0400 Body mass index (BMI) [Ratio] 47.1 kg/m2 [facility] 02-08-2024 14:43-0400 Body temperature 98 [degF] [facility] 02-08-2024 14:43-0400 Body weight 126.6 kg [facility] 02-08-2024 14:43-0400 Heart rate 77 /min [facility] 02-08-2024 14:43-0400 Respiratory rate 16 /min [facility] 02-08-2024 14:43-0400 SaO2% (BldA) [Mass fraction] 92 % [facility] 08-15-2023 10:10-0500 Body height 163.83 cm Karo Cazares Other [facility] Compound Time Other 08-15-2023 10:10-0500 Body mass index (BMI) [Ratio] 46.3 kg/m2 Karo Cazares Other [facility] Other 08-15-2023 10:10-0500 Body temperature 99.1 [degF] Karo Cazares Other [facility] Other 08-15-2023 10:10-0500 Body weight 124.29 kg Karo Cazares Other [facility] Other 08-15-2023 10:10-0500 Respiratory rate 18 /min Karo Cazares Other [facility] Other 08-15-2023 10:10-0500 SaO2% (BldA) [Mass fraction] 88 % Karo Cazares Other [facility] Other 08-11-2023 09:55-0500 Body height 163.83 cm Jacquelin Terrell Other [facility] Other 08-11-2023 09:55-0500 Body mass index (BMI) [Ratio] 45.46 kg/m2 Jacquelin Terrell Other [facility] Other 08-11-2023 09:55-0500 Body temperature 97.3 [degF] Jacquelin Terrell Other [facility] Other 08-11-2023 09:55-0500 Body weight 122.02 kg Jacquelin Terrell Other [facility] Other 08-11-2023 09:55-0500 Respiratory rate 18 /min Jacquelin Terrell Other [facility] Other 08-11-2023 09:55-0500 SaO2% (BldA) [Mass fraction] 97 % Jacquelin Terrell Other [facility] Other Encounters Encounter Date Encounter Type Care Provider Facility Start: 10-02-2024 End: 10-02-2024 ambulatory [facility] Work Phone: Start: 10-02-2024 End: 10-02-2024 Patient encounter procedure [facility] Work Phone: Start: 02-08-2024 End: 02-08-2024 ambulatory Karo Elam SchmitzCazares [facility] Work Phone: Start: 02-08-2024 End: 02-08-2024 Patient encounter procedure [facility] Work Phone: Start: 08-15-2023 End: 08-15-2023 ambulatory Karo Cazares Other [facility] Other Start: 08-15-2023 Patient encounter procedure Karo Cazares [facility] Start: 08-11-2023 End: 08-11-2023 ambulatory Jacquelin Terrell Other [facility] Other Start: 08-11-2023 Office outpatient vi sit 15 minutes Jacquelin Terrell [facility] Start: 09-28-2022 End: 09-29-[address] DOCTOR MCGEE Facility:H1 Plan of Treatment Date Care Activity Detail Author Bacteria identified in Urine by Culture [facility] Payers Date Payer Category Payer Medicaid [id number] 2. [id number] 1980 Unknown [id number] 1960 Self-pay Unknown [id number] Social History Date Type Detail Facility Unknown if ever smoked [facility] Compound Time Other Sex Assigned At Sex Assigned At Bir th [employer] Compound Time Other Start: 02-08-2024 End: 02-08-2024 Tobacco smoking status NHIS Never smoked tobacco (finding) [facility] Start: 1980 Sex Assigned At Female [facility] Start: 10-02-2024 Sex Female (finding) [facility] Evaluation note 08-15-2023 Note Date & Type Note Facility 08-15-2023 Evaluation note Encounter Date Diagnosis Assessment Notes Aug, Acute cough (ICD-10 - R05.1) [facility] Compound Time Other Evaluation note 08-11-2023 Note Date & [...] understanding and is agreeable to treatment plan. [facility] Other Evaluation note Note Date & Type Note Facility Evaluation note No assessment information availa [facility] Work Phone: History general Narrative - Reported Note Date & Type Note Facility History general Narrative - Reported Type Medical History lupus Medical History fibromyalgia Surgical History tubal ligation [facility] Compound Time Other Summary Purpose Family History Relationship Condition Age at Onset Recorded Date/T hector father Parkinson's disease Unknown Unknown mother Hypertension Unknown Advance Directives Advance Directive Response Recorded Date/ Time Advance Directives No February 07 2:30pm Advance Directive Response Recorded Date/ Time Advance Directives No February 07 1:30pm Chief Complaint and Reason for Visit Chief Complaint Possible UTI Chief Complaint Admit Date Rash October 02, 2024 4:52pm Additional Source Comments INFORMATION SOURCE (unrecogn ized section and content) DATE CREATED AUTHOR 10/01/2022 [facility] DATE CREATED AUTHOR AUTHOR'S ORGANIZ ATION 02/12/2024 [facility] REASON FOR VISIT (unrecogniz ed [...] February 08, 2024 End: February 08, 2024 Team Status: Inactive Member Role Status Dates Brandie Johnson APRN Attending Provider Active S tart: October 02, 2024 End: October 02, 2024 PHYSICIAN NO FAMILY Primary Care Provider Active Start: October 02, 2024 End: October 02, 2024 Goals (unrecognized section and content) Goals [...] BE BASED ON THE PRIMARY CLINICAL RECORDS. [employer] [facility]. provides no warranty or guarantee of the accuracy or completeness of information in this document.
--- NOTE | 2024-10-09 11:44 | ED_ITS ---
HPI HPI - General Adult General Chief complaint: Upper Respiratory Infection Stated complaint: FLU LIKE SYMPTOMS Time Seen by Provider: 10/09/24 11:23 Source: patient Mode of arrival: walk-in History of Present Illness HPI narrative: Patient presents to ED complaining of flulike symptoms. She has a cough and upper respiratory type infection. She has some tightness in her chest from the cough. She states her household has been sick with influenza A and tested positive. She said she tried to stay away from everybody and steer clear of the infection but woke up last night with symptoms. This morning when she got up her symptoms were slightly worse so she came into the ER for evaluation. Able she is slightly hypertensive. Heart rate slightly elevated at 102 after ambulation but calm down once she was resting. No acute respiratory distress, 96% on room air. She has not had any productive cough. Related Data Home Medications ?Medication ?Instructions ?Recorded ?Confirmed metformin 500 mg tablet mg 10/09/24 Previous Rx's ?Medication ?Instructions ?Recorded albuterol sulfate 90 mcg/actuation 1 inh inhalation Q6H PRN shortness 10/09/24 aerosol inhaler of breath or wheezing #8.5 grams oseltamivir 75 mg capsule (Tamiflu) 75 mg PO BID 5 days #10 caps 10/09/24 Allergies Allergy/AdvReac Type Severity Reaction Status Date / Time codeine Allergy Mild vomiting Verified 10/09/24 11:23 Opioid HPI Opioid Management Most Recent Opioid Data: Last Pain Scale 8 08/17/23 18:13 08/17/23 Review of Systems ROS Status of ROS 10 or more systems reviewed and unremark able except as noted in history and below PFSH PFSH Social History Little interest or pleasure in doing things: not at all Feeling down, depressed, or hopeless: not at all Exam Narrative Exam Narrative: General: alert, no acute distress Cardiovascular: regular rate and rhythm, normal peripheral perfusion. Respiratory: Mildly diminished breath sounds bilateral bases otherwise clear, no respiratory distress Extremities: no deformity, no trauma. Neurological: oriented x 4, LOC appropriate for age. Constitutional Vital Signs, click to edit/add: Last Vital Signs Temp 98.3 F 10/09/24 11:23 Pulse 102 H 10/09/24 11:23 Resp 20 10/09/24 11:23 BP 160/90 H 10/09/24 11:23 Pulse Ox 96 10/09/24 11:23 O2 Del Method Room Air 10/09/24 11:23 Course Vital Signs Vital signs: Vital Signs Temperature 98.3 F 10/09/24 11:23 Pulse Rate 102 H 10/09/24 11:23 Respiratory Rate 20 10/09/24 11:23 Blood Pressure 160/90 H 10/09/24 11:23 Pulse Oximetry 96 10/09/24 11:23 Oxygen Delivery Method Room Air 10/09/24 11:23 Temperature 98.3 F 10/09/24 11:23 Pulse Rate 102 H 10/09/24 11:23 Respiratory Rate 20 10/09/24 11:23 Blood Pressure 160/90 H 10/09/24 11:23 Pulse Oximetry 96 10/09/24 11:23 Oxygen Delivery Method Room Air 10/09/24 11:23 Medical Decision Making MDM Narrative Medical decision making narrative: Patient has influenza A. Patient has no fever. Her symptoms just started last night so I will start her on Tamiflu. She was given albuterol for bronchospasm and cough. Continue Tylenol and Motrin at home for pain body aches or fevers. Return to ED if worsening symptoms. Patient is stable and comfortable with care plan for home. Differential Diagnosis Differential Diagnosis: Flu, viral syndrome Lab Data Lab results reviewed: Yes I reviewed the patient's lab results Discharge Plan Discharge Chief Complaint: Upper Respiratory Infection Clinical Impression: Influenza Patient Disposition: Home, Self-Care Time of Disposition Decision: 11:41 Condition: Good Mode of Transportation: Private Vehicle Prescriptions / Home Meds: New oseltamivir [Tamiflu] 75 mg capsule 75 mg PO BID 5 Days Qty: 10 0RF albuterol sulfate 90 mcg/actuation HFA aerosol inhaler 1 inh inhalation Q6H PRN (Reason: shortness of breath or wheezing) Qty: 8.5 0RF No Action metformin 500 mg tablet Print Language: Pakistani Instructions: Influenza (ED) Referrals: Physician,Non-Staff, MD [Primary Care Provider] - 1 week
[2024-10-09 12:00] LABS: Influenza Virus A Antigen Negative; Influenza Virus B Antigen Negative; Internal Control Within Normal Limits
== END 2024-10-09 12:39 | disposition home or self-care (01) ==
PROVIDERS: Emergency Provider Emergency Medicine
DX: J10.1 Influenza due to other identified influenza virus with other respiratory manifestations (principal)
CPT/HCPCS: 87804; 99283

== ENCOUNTER 2024-10-13 11:49 | Emergency (ER) | payer MEDICAID, SELFPAY ==
[2024-10-13 11:55] VITALS: BP 138/90; PULSE 92; TEMP 36.6; O2SAT 96; BMI 42.9
--- OUTSIDE RECORDS SUMMARY | 2024-10-13 11:55 | XMS_ITS | CCD ---
Author Organization [facility] CliniSyco Care Team Providers Care Coffee Weigher Name Role Phone DR MACHELLE SIDDIQUI Primary Care Unavailable NAILA PETERS Consulting Unavailable NAILA PETERS Attending Unavailable NAILA PETERS Admitting Unavailable Jacquelin Terrell Unavailable Karo Cazares Unavailable Karo Cazares Attending Unavailable Karo Cazares Admitting Unavailable Allergies Allergy Classification Reported Allergen(s) Allergy Type Date of Onset Reaction(s) Facility (1 source) Ethinyl Estradiol / norgestimate Drug Allergy [facility] Repository (2 sources) Ethinyl Estradiol / norgestimate Drug Allergy shortness of breath [facility] Other (3 sources) Codeine; Translations: [codeine] Drug Allergy 4 Vomiting [facility] (3 sources) Ethinyl Estradiol; Translations: [ethinyl estradiol] Drug Allergy 4 shortness of breath [facility] (3 sources) norgestimate; Translations: [norgestimate] Drug Allergy 4 shortness of breath [facility] Medications Current Medications Medication Drug Class(es) Dates Sig (Normalized) Sig (Original) [id number] 60 actuat albuterol 0.09 mg/actuat metered dose [...] 1.5 mg/ml oral solution (2 sources) Uncompetitive C-woefio-A-asparta te Receptor Antagonist, Sigma-1 Agonist Start: 12-29-2022 take 10 mL by mouth every eight hours as needed [place] DM 7.5-7.5 MG/5ML 10 mL Orally every [...] Cx Nom (U) ORGANISM: Escherichia coli (O:ESCCOL) [place] Count >100,000 Aerobic WENDY Charge (NMIC56) ----- [...] RESISTANT TO ALL B-LACTAM DRUGS. PERFORMED BY: [place] [address] PATHOLOGIST VEST MAKER YESICA HOGAN M.D. Normal [facility] Comment on above: Performed By: #### C UU #### [address] COVID + FLU Quick Testingon 08-15-2023 SARS-CoV-2 (COVID-19) RNA OLESYA+probe Ql (Unsp spec) Positive [facility] Other COVID + FLU Quick Testing Negative [facility] Other COVID/FLU/RSV RT-PCRon 08-11 SARS-CoV-2 (COVID-19) RNA OLESYA+probe Ql (Unsp spec) Negative [facility] Other COVID/FLU/RSV RT-PCR Negative [facility] Other GROUP A STREP CULTUREon 09-14 S. [...] F Tetracycline <=0.25 S F Normal [facility] Comment on above: Performed By: #### G RASTCX, SSCRN #### [facility] Laboratory [address] [address] [address] Antonietta Farmer STREPT SCREENon 09-28-2022 STREP SCREEN A Negative Normal NEGATIVE [facility] Comment on above: Performed By: #### G RASTCX, SSCRN #### [facility] Laboratory [address] [address] [address] Antonietta Farmer Vital Signs Date Time Vital Sign Value Performing Clinician Facility 10-02-2024 16:59-0500 Body height 163.83 cm [facility] 10-02-2024 16:59-0500 Body mass index (BMI) [Ratio] 27.5 kg/m2 [facility] 10-02-2024 16:59-0500 Body temperature 98.1 [degF] [facility] 10-02-2024 16:59-0500 Body weight 73.93 kg [facility] 10-02-2024 16:59-0500 Diastolic blood pressure 83 mm[Hg] [facility] 10-02-2024 16:59-0500 Heart rate 74 /min [facility] 10-02-2024 16:59-0500 Respiratory rate 18 /min [facility] 10-02-2024 16:59-0500 SaO2% (BldA) [Mass fraction] 95 % [facility] 10-02-2024 16:59-0500 Systolic blood pressure 134 mm[Hg] [facility] 02-08-2024 14:43-0400 Body height 163.83 cm [facility] 02-08-2024 14:43-0400 Body mass index (BMI) [Ratio] 47.1 kg/m2 [facility] 02-08-2024 14:43-0400 Body temperature 98 [degF] [facility] 02-08-2024 14:43-0400 Body weight 126.6 kg [facility] 02-08-2024 14:43-0400 Heart rate 77 /min [facility] 02-08-2024 14:43-0400 Respiratory rate 16 /min [facility] 02-08-2024 14:43-0400 SaO2% (BldA) [Mass fraction] 92 % [facility] 08-15-2023 10:10-0500 Body height 163.83 cm Karo Cazares Other [facility] Other 08-15-2023 10:10-0500 Body mass index (BMI) [Ratio] 46.3 kg/m2 Karo Cazares Other [facility] Other 08-15-2023 10:10-0500 Body temperature 99.1 [degF] Karo Cazares Other [facility] Other 08-15-2023 10:10-0500 Body weight 124.29 kg Karo Cazares Other [facility] Other 08-15-2023 10:10-0500 Respiratory rate 18 /min Karo Cazares Other [facility] Other 08-15-2023 10:10-0500 SaO2% (BldA) [Mass fraction] 88 % Karo Cazares Other [facility] Other 08-11-2023 09:55-0500 Body height 163.83 cm Jacquelin Terrell Other [facility] Other 08-11-2023 09:55-0500 Body mass index (BMI) [Ratio] 45.46 kg/m2 Jacquelin Terrell Other [facility] Other 08-11-2023 09:55-0500 Body temperature 97.3 [degF] Jacquelin Terrell Other [facility] Other 08-11-2023 09:55-0500 Body weight 122.02 kg Jacquelin Terrell Other [facility] Other 08-11-2023 09:55-0500 Respiratory rate 18 /min Jacquelin Terrell Other [facility] Other 08-11-2023 09:55-0500 SaO2% (BldA) [Mass fraction] 97 % Jacquelin Terrell Other [facility] Other Encounters Encounter Date Encounter Type Care Provider Facility Start: 10-02-2024 End: 10-02-[address] [facility] Work Phone: Start: 10-02-2024 End: 10-02-2024 Patient encounter procedure [facility] Work Phone: Start: 02-08-2024 End: 02-08-2024 ambulatory Karo Elma SchmitzCazares [facility] Work Phone: Start: 02-08-2024 End: 02-08-2024 Patient encounter procedure [facility] Work Phone: Start: 08-15-2023 End: 08-15-2023 ambulatory Karo Cazares Other [facility] Other Start: 08-15-2023 Patient encounter procedure Karo Cazares [facility] Start: 08-11-2023 End: 08-11-2023 ambulatory Jacquelin Terrell Other [facility] Other Start: 08-11-2023 Office outpatient vi sit 15 minutes Jacquelin Terrell [facility] Start: 09-28-2022 End: 09-29-[address] DOCTOR MCGEE Facility:H1 Plan of Treatment Date Care Activity Detail Author Bacteria identified in Urine by Culture [facility] Payers Date Payer Category Payer Medicaid [id number] 2. [id number] 1980 Unknown [id number] 1960 Self-pay Unknown [id number] Social History Date Type Detail Facility Unknown if ever smoked [facility] Other Sex Assigned At Sex Assigned At Bir th [facility] Other Start: 02-08-2024 End: 02-08-2024 Tobacco smoking status NHIS Never smoked tobacco (finding) [facility] Start: 1980 Sex Assigned At Female F [facility] Start: 10-02-2024 Sex Female (finding) [facility] Evaluation note 08-15-2023 Note Date & Type Note Facility 08-15-2023 Evaluation note Encounter Date Diagnosis Assessment Notes Aug, Acute cough (ICD-10 - R05.1) [facility] Other Evaluation note 08-11-2023 Note Date & [...] understanding and is agreeable to treatment plan. [facility] Other Evaluation note Note Date & Type Note Facility Evaluation note No assessment information availa [facility] Work Phone: History general Narrative - Reported Note Date & Type Note Facility History general Narrative - Reported Type Medical History lupus Medical History fibromyalgia Surgical History tubal ligation [facility] Other Summary Purpose Family History Relationship Condition [...] CREATED AUTHOR AUTHOR'S ORGANIZ ATION 02/12/2024 [facility] REASON FOR VISIT (unrecogniz [...] BE BASED ON THE PRIMARY CLINICAL RECORDS. [facility]. provides no warranty or guarantee of the accuracy or completeness of information in this document.
--- NOTE | 2024-10-13 12:27 | ED_ITS ---
HPI - Skin/Abscess/Foreign Bdy General Chief complaint: Skin/Abscess/Foreign Body Stated complaint: RASH Time Seen by Provider: 10/13/24 12:00 Source: patient Mode of arrival: walk-in History of Present Illness HPI narrative: cc = skin rash Patient presents with a rash under her armpits across the area underneath her neck and in between her breasts that she said started a few days ago. She said that she was diagnosed with flulike illness and even though she was not tested or tested negative -it is not clear which -she was apparently started on Tamiflu. She said that the rash is painful rather than itchy. She had a small area of similar rash underneath her armpits a few weeks ago, went to the urgent care to get some sort of allergy medication -she cannot remember the name -and stopped using it 24 hours later when it did not seem to make a difference. Shortly after that is when she developed these flulike symptoms and there was started on Tamiflu. No other complaints at this time. No throat swelling or itching, no difficulty breathing, no area of wheal or flare reaction anywhere else. Related Data Home Medications ?Medication ?Instructions ?Recorded ?Confirmed metformin 500 mg tablet mg 10/09/24 fluoxetine 20 mg capsule mg 10/13/24 methocarbamol 750 mg tablet mg 10/13/24 nystatin 100,000 unit/gram topical topical 10/13/24 cream Previous Rx's ?Medication ?Instructions ?Recorded albuterol sulfate 90 mcg/actuation 1 inh inhalation Q6H PRN shortness 10/09/24 aerosol inhaler of breath or wheezing #8.5 grams oseltamivir 75 mg capsule (Tamiflu) 75 mg PO BID 5 days #10 caps 10/09/24 clotrimazole 1 % topical cream 1 applic topical BID 2 weeks #45 10/13/24 grams Allergies Allergy/AdvReac Type Severity Reaction Status Date / Time codeine Allergy Mild vomiting Verified 10/09/24 11:23 PFSH PFSH Social History Little interest or pleasure in doing things: not at all Feeling down, depressed, or hopeless: not at all Exam Narrative Exam Narrative: Nurses notes and vital signs reviewed and patient is not hypoxic. afebrile General: Well-appearing and in no apparent distress. Skin: Warm, dry, no pallor noted. The patient has confluent, raised, rough appearing erythema and skin changes noted to the folds underneath her neck as well as the area between her breasts in the folds of the armpits bilaterally. This appears fungal rather than allergic. No other skin changes were noted. Head: Normocephalic, atraumatic. Eye: Pupils are equal, round and EOMI. No scleral icterus. Ears, Nose, Mouth, and Throat: Oral mucosa is moist without lesions, tongue swelling or pharyngeal swelling. Cardiovascular: Regular Rate and Rhythm without murmur, gallop or rub. Respiratory: No accessory muscle use or respiratory distress. Lungs are clear to auscultation, no wheezing, rales or rhonchi Musculoskeletal: normal ROM in all 4 extremities. Trunk without any additional rash other than that noted between the breasts which appears fungal as the other areas do Neurological: A&O x4. No cranial nerve dysfunction observed. No truncal ataxia. Moves all extremities. Sensation intact. Psychiatric: Cooperative and interactive. Normal mood and affect. Constitutional Vital Signs, click to edit/add: Last Vital Signs Temp 97.8 F 10/13/24 11:55 Pulse 92 H 10/13/24 11:55 Resp 18 10/13/24 11:55 BP 138/90 10/13/24 11:55 Pulse Ox 96 10/13/24 11:55 O2 Del Method Room Air 10/13/24 11:55 Course Vital Signs Vital signs: Vital Signs Temperature 97.8 F 10/13/24 11:55 Pulse Rate 92 H 10/13/24 11:55 Respiratory Rate 18 10/13/24 11:55 Blood Pressure 138/90 10/13/24 11:55 Pulse Oximetry 96 10/13/24 11:55 Oxygen Delivery Method Room Air 10/13/24 11:55 Temperature 97.8 F 10/13/24 11:55 Pulse Rate 92 H 10/13/24 11:55 Respiratory Rate 18 10/13/24 11:55 Blood Pressure 138/90 10/13/24 11:55 Pulse Oximetry 96 10/13/24 11:55 Oxygen Delivery Method Room Air 10/13/24 11:55 MDM - Skin/Abscess/Foreign Bdy MDM Narrative Medical decision making narrative: Patient given 200 mg Diflucan orally in the emergency department for being discharged home with a prescription for topical antifungal cream. She needs a follow-up with her primary care physician for reassessment later this week or next week at the earliest. Discharge Plan Discharge Chief Complaint: Skin/Abscess/Foreign Body Clinical Impression: Tinea corporis, Fungal infection Patient Disposition: Home, Self-Care Time of Disposition Decision: 12:31 Prescriptions / Home Meds: New clotrimazole 1 % cream 1 applic topical BID 14 Days Qty: 45 0RF No Action metformin 500 mg tablet oseltamivir [Tamiflu] 75 mg capsule 75 mg PO BID 5 Days Qty: 10 0RF albuterol sulfate 90 mcg/actuation HFA aerosol inhaler 1 inh inhalation Q6H PRN (Reason: shortness of breath or wheezing) Qty: 8.5 0RF methocarbamol 750 mg tablet nystatin 100,000 unit/gram cream TOPICAL fluoxetine 20 mg capsule Print Language: Croatian Instructions: Skin Yeast Infection (ED) Referrals: Physician,Non-Staff, MD [Primary Care Provider] - 1 week
[2024-10-13] MEDS: FLUCONAZOLE 100 MG TABLET 200 MG PO (12:51)
== END 2024-10-13 13:00 | disposition home or self-care (01) ==
PROVIDERS: Emergency Provider Emergency Medicine
DX: B35.4 Tinea corporis (principal)
CPT/HCPCS: 99283